=== PATIENT | female | born 2000 | race Caucasian/White ===

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

== ENCOUNTER 2018-11-22 22:04 | Outpatient (CLI) | payer OTHER ==
[2018-11-22 22:46] LABS: APPEARANCE,URINE SLIGHTLY-CLOUDY; BILIRUBIN,URINE NEGATIVE (NEGATIVE); COLOR,URINE AMBER; GLUCOSE, URINE NEGATIVE (NEGATIVE); KETONES,URINE 20 mg/dL (NEGATIVE); LEUKOCYTE ESTERASE,URINE NEGATIVE (NEGATIVE); NITRITE,URINE NEGATIVE (NEGATIVE); PROTEIN,URINE 30 mg/dL (NEGATIVE); URINE SPECIFIC GRAVITY 1.031; UROBILINOGEN,URINE NEGATIVE mg/dL (<2.0)
[2018-11-22 23:26] LABS: URINE AMPHETAMINES SCREEN NEGATIVE; URINE BARBITURATES SCREEN NEGATIVE; URINE BENZODIAZEPINES SCREEN NEGATIVE; URINE COCAINE SCREEN NEGATIVE; URINE MARIJUANA (THC) SCREEN NEGATIVE; URINE METHADONE SCREEN NEGATIVE; URINE PHENCYCLIDINE SCREEN NEGATIVE
--- NOTE | 2018-11-23 00:51 | Non Stress Test Report ---
Non Stress Test Datetime Report Generated by CPN: 11/23/2018 00:51 DEMOGRAPHIC EGA NST: 37.5 INDICATION Indication for Study: Ordered by Provider MONITORING Monitor Explained: Monitor Explained; Test Explained; Patient Verbalized Understanding Time on Monitor: 11/22/2018 23:00 Time off Monitor: 11/23/2018 00:25 NST Duration: 85 NST INTERVENTIONS NST Interventions: PO Hydration; IV Fluids; Reposition Patient Physician Notified NST: Dr. Garcia BABY A: [id number] BABY A Movement : Present Contraction Frequency : irregular FHR Baseline : 125 Accelerations : 15X15 Decelerations : None Variability : Moderate 6-25bpm NST Review: Meets Criteria for Reactive NST NST Review and Verified By : Shanon Castillo RN NST Results: Reactive NST REPORT Report Trigger: Send Report
== END 2018-11-23 00:51 | disposition home or self-care (01) ==
LOC: LC 22:04
PROVIDERS: ATTEND Student in an Organized Health Care Education/Training Program
PROC: 4A1HXCZ Monitoring of Products of Conception, Cardiac Rate, External Approach (ICD-10-PCS; principal; 2018-11-22)
DX: O47.1 False labor at or after 37 completed weeks of gestation (principal); Z3A.37 37 weeks gestation of pregnancy
CPT/HCPCS: 59025; 80307; 81005

== ENCOUNTER 2018-12-15 17:43 | Emergency (ER) | payer OTHER ==
--- NOTE | 2018-12-15 18:00 | EKG REPORT ---
SEVERITY:- ABNORMAL ECG - SINUS TACHYCARDIA VENTRICULAR BIGEMINY BORDERLINE PROLONGED QT INTERVAL : Confirmed by: Darrian Pierre MD 15-Dec-2018 18:00:26
[2018-12-15] MEDS ORDERED: ASPIRIN 81 MG TABLET, CHEWABLE PO ONE (18:03)
[2018-12-15] MEDS ORDERED: METOPROLOL TARTRATE 25 MG TABLET PO ONE (18:41)
[2018-12-15] MEDS ORDERED: IPRATROPIUM/ALBUTEROL 0.5-2.5 MG/3 ML AMPUL NEB ONE (18:41)
--- NOTE | 2018-12-15 19:01 | ER Document Report ---
ED General - General Chief Complaint: Irregular Pulse Stated Complaint: IRREGULAR HEARTBEAT Time Seen by Provider: 12/15/18 18:22 TRAVEL OUTSIDE OF THE [place] IN LAST 30 DAYS: No - Related Data Allergies/Adverse Reactions: amoxicillin Allergy (Verified 12/15/18 17:44) kiwi Allergy (Verified 12/15/18 17:44) Penicillins Allergy (Verified 12/15/18 17:44) Past Medical History - Social History Smoking Status: Never Smoker Chew tobacco use (# tins/day): No Frequency of alcohol use: None Drug Abuse: None Patient has suicidal ideation: No Patient has homicidal ideation: No Renal/ Medical History: Denies: Hx Peritoneal Dialysis Physical Exam - Vital signs Vitals: Temp Pulse Resp BP Pulse Ox 98.0 F 96 18 126/96 H 99 12/15/18 17:56 12/15/18 17:56 12/15/18 17:56 12/15/18 17:56 12/15/18 17:56 Course - Vital Signs Vital signs: Temp Pulse Resp BP Pulse Ox 97.6 F 96 21 H 116/75 100 12/15/18 18:26 12/15/18 17:56 12/15/18 18:26 12/15/18 18:26 12/15/18 18:26 - Laboratory Result Diagrams: 12/15/18 18:40 12/15/18 18:40 - EKG Interpretation by Md EKG shows normal: Sinus rhythm Rate: Tachycardia - Bigeminy, prolonged QTC When compared to previous EKG there are: Previous EKG unavailable
[2018-12-15] MEDS ORDERED: RINGERS SOLUTION,LACTATED 1,000 ML IV ONE (19:02)
--- NOTE | 2018-12-15 19:02 | ER Document Report ---
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 Patient states that she was seeing the glass wool blanket machine feeder for a skin rash on her right leg. She denies any palpitations, diaphoresis, dizziness. She states she has had some shortness of breath over the last 3 days. Patient also has associated chest pressure and nausea without vomiting. Patient is day 14. She states she had an under the uneventful vaginal delivery without any complications. Patient denies any current medication use, alcohol, tobacco use. TRAVEL OUTSIDE OF THE [place] IN LAST 30 DAYS: No - HPI Onset: This afternoon Onset/Duration: Sudden Quality of pain: Pressure Severity: Mild Associated symptoms: Chest pain, Nausea, Shortness of breath. denies: Nonproductive cough, Fever, Headache, Leg swelling, Vomiting, Sweating Exacerbated by: Movement Relieved by: Denies Similar symptoms previously: No Recently seen / treated by doctor: Yes - Related Data Allergies/Adverse Reactions: amoxicillin Allergy (Verified 12/15/18 17:44) kiwi Allergy (Verified 12/15/18 17:44) Penicillins Allergy (Verified 12/15/18 17:44) Past Medical History - General Information source: Patient - Social History Smoking Status: Never Smoker Chew tobacco use (# tins/day): No Frequency of alcohol use: None Drug Abuse: None Lives with: Family, Spouse/Significant other Family History: Reviewed & Not Pertinent Patient has suicidal ideation: No Patient has homicidal ideation: No - Medical History Medical History: Negative Renal/ Medical History: Denies: Hx Peritoneal Dialysis Review of Systems - Review of Systems Notes: REVIEW OF SYSTEMS: CONSTITUTIONAL : Denies fever, chills, or sweats. Denies recent illness. Denies weight loss, recent hospitalizations. EENT: Denies visual changes, eye pain. Denies sore throat, oral lesions, difficulty swallowing. CARDIOVASCULAR: + chest pain. Denies palpitations. Denies lower extremity edema. RESPIRATORY: Denies cough. + shortness of breath, denies wheezing. GASTROINTESTINAL: Denies abdominal pain or distention. Denies vomiting, or diarrhea. Denies blood in vomitus, stools, or per rectum. Denies black, tarry stools. Denies constipation. GENITOURINARY: Denies difficulty urinating, painful urination, frequency, blood in urine, or vaginal discharge. MUSCULOSKELETAL: Denies back or neck pain or stiffness. Denies joint pain or swelling. SKIN: Denies rash, lesions or sores. HEMATOLOGIC : Denies easy bruising or bleeding. LYMPHATIC: Denies swollen glands. NEUROLOGICAL: Denies confusion or altered mental status. Denies loss of consciousness. Denies dizziness or lightheadedness. Denies headache. Denies weakness or paralysis. Denies problems difficulty with ambulation, slurred speech. Denies sensory loss, numbness, or tingling. Denies seizures. PSYCHIATRIC: Denies anxiety or stress. Denies depression, suicidal ideation, or homicidal ideation. Denies visual or auditory hallucinations. Physical Exam - Vital signs Vitals: Temp Pulse Resp BP Pulse Ox 98.0 F 96 18 126/96 H 99 12/15/18 17:56 12/15/18 17:56 12/15/18 17:56 12/15/18 17:56 12/15/18 17:56 - Notes Notes: PHYSICAL EXAMINATION: GENERAL: Well-appearing, well-nourished and in no acute distress. HEAD: Atraumatic, normocephalic. EYES: Pupils equal round and reactive to light, extraocular movements intact, conjunctiva are normal. ENT: Nares patent, oropharynx clear without exudates. Moist mucous membranes. NECK: Normal range of motion, supple without lymphadenopathy LUNGS: Breath sounds clear to auscultation bilaterally and equal. No wheezes rales or rhonchi. HEART: Regular rate and rhythm without murmurs ABDOMEN: Soft, nontender, nondistended abdomen. No guarding, no rebound. No masses appreciated. Female : deferred Musculoskeletal: Normal range of motion, no pitting or edema. No cyanosis. NEUROLOGICAL: Cranial nerves grossly intact. Normal speech, normal gait. Normal sensory, motor exams PSYCH: Normal mood, normal affect. SKIN: Warm, Dry, normal turgor, no rashes or lesions noted. Course - Re-evaluation Re-evalutation: 12/16/18 01:46 Laboratory 12/15/18 12/15/18 12/15/18 18:40 18:40 18:40 WBC 7.5 RBC 4.80 Hgb 14.9 Hct 43.7 MCV 91 MCH 31.0 MCHC 34.0 RDW 15.0 H Plt Count 278 Seg Neutrophils % 50.4 Lymphocytes % 36.0 Monocytes % 9.2 Eosinophils % 3.5 Basophils % 0.9 Absolute Neutrophils 3.8 Absolute Lymphocytes 2.7 Absolute Monocytes 0.7 Absolute Eosinophils 0.3 Absolute Basophils 0.1 PT 13.0 INR 0.98 D-Dimer 0.33 Sodium 138.7 Potassium 4.0 Chloride 104 Carbon Dioxide 23 Anion Gap 12 BUN 18 Creatinine 0.76 Est GFR ( Amer) > 60 Est GFR (Non-Af Amer) > 60 Glucose 81 Calcium 9.5 Magnesium 2.0 Total Bilirubin 0.9 Direct Bilirubin 0.2 Neonat Total Bilirubin Not Reportable Neonat Direct Bilirubin Not Reportable Neonat Indirect Bili Not Reportable AST 21 ALT 13 Alkaline Phosphatase 110 Troponin I Total Protein 7.1 Albumin 4.4 TSH Free T4 Free T3 pg/mL 12/15/18 12/15/18 12/15/18 18:40 18:40 20:50 WBC RBC Hgb Hct MCV MCH MCHC RDW Plt Count Seg Neutrophils % Lymphocytes % Monocytes % Eosinophils % Basophils % Absolute Neutrophils Absolute Lymphocytes Absolute Monocytes Absolute Eosinophils Absolute Basophils PT INR D-Dimer Sodium Potassium Chloride Carbon Dioxide Anion Gap BUN Creatinine Est GFR ( Amer) Est GFR (Non-Af Amer) Glucose Calcium Magnesium Total Bilirubin Direct Bilirubin Neonat Total Bilirubin Neonat Direct Bilirubin Neonat Indirect Bili AST ALT Alkaline Phosphatase Troponin I < 0.012 < 0.012 Total Protein Albumin TSH 0.56 Free T4 0.76 L Free T3 pg/mL 3.77 Chest X-Ray 12/15/18 18:59 IMPRESSION: NO ACUTE RADIOGRAPHIC FINDING IN THE CHEST. 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 Vital signs reviewed and within normal limits. Previous medical records and nursing notes reviewed. Patient does not appear toxic or dehydrated. EKG was obtained which shows sinus rhythm with occasional PVCs and bigeminy. No previous EKG available for comparison. CBC is without leukocytosis or anemia. CMP is without electrolyte abnormality. Cardiac enzymes including delta troponin were within normal limits. Patient is PERC negative. Thyroid panel is unremarkable. I did trial metoprolol 12.5 mg p.o. 1 time but patient's blood pressure was lower than I would like, for continuous use. Patient does not currently have a technical specialist cytology but was referred to one. No home-going medications were given at this time. Return precautions discussed with the patient and her who is at the bedside. Patient was evaluated and treated as appropriate for the patient's presenting symptoms and complaint, with consideration of any critical or life threatening conditions that may be associated with their obtained history and exam as noted above. All results were discussed with patient and her who is at the bedside patient provided the opportunity to ask questions, and express concerns. Patient was educated on treatments based on their presumed diagnosis as noted above. At this time we will discharge the patient with return precautions and follow-up recommendations. Verbal discharge instructions given a the bedside. Medication warnings reviewed. Patient is in agreement with this plan and has verbalized understanding of return precautions. After careful consideration I feel that that patient can be safely discharged from the emergency department, they were advised to followup with a primary care physician in 2-3 days. Dictation on this chart was performed using voice recognition software and may result in unintended grammatical, spelling, syntax or errors. Presentation of chest pain in an otherwise well appearing patient. Low clinical suspicion for ACS given clinical history, exam, EKG without ST elevations or depressions, and negative initial troponin. HEART score less than or equal to 3. PE also seems unlikely given clinical history, absence of tachycardia or dyspnea. Patient is PERC criteria negative. CXR without evidence of pneumothorax or pneumonia. No widened mediastinum. Aortic dissection also seems unlikely given history, symmetric pulses, CXR, and vitals. HEART Score: History-0 ECG-0 Age-0 Risk Factors-0 Troponin-0 Total: 0 Chest pain in a patient without evidence of cardiac or other serious etiology on workup today. I discussed with patient that, based on their age, risk factors and emergency department testing today, the likelihood that their symptoms are related to a heart attack is very low (estimated risk of heart attack or over the next 30 days of less than 1%). The patient demonstrates decision making capacity and has verbalized an understanding of these risks to me. Based on this, the patient has chosen to follow-up as an outpatient. Usual chest pain return precautions reviewed. The patient states understanding and agreement with this plan. - Vital Signs Vital signs: Temp Pulse Resp BP Pulse Ox 97.7 F 96 16 106/69 100 12/15/18 22:02 12/15/18 17:56 12/15/18 22:03 12/15/18 22:02 12/15/18 22:03 - Laboratory Result Diagrams: 12/15/18 18:40 12/15/18 18:40 Laboratory results interpreted by me: 12/15/18 12/15/18 18:40 18:40 RDW 15.0 H Free T4 0.76 L - Diagnostic Test Radiology reviewed: Image reviewed, Reports reviewed - EKG Interpretation by Me EKG shows normal: Sinus rhythm Rate: Normal Rhythm: NSR - Bigeminy When compared to previous EKG there are: Previous EKG unavailable Discharge - Discharge Clinical Impression: Bigeminy, Palpitations Chest pain Qualifiers: Chest pain type: unspecified Qualified Code(s): R07.9 - Chest pain, unspecified Dyspnea Qualifiers: Dyspnea type: unspecified Qualified Code(s): R06.00 - Dyspnea, unspecified Condition: Good Disposition: HOME, SELF-CARE Instructions: Dyspnea, Nonspecific ([facility]), Palpitations (Irregular or Rapid Heartrate) ([facility]) Additional Instructions: Follow up with your [id number] hours for further care or return to the ED IMMEDIATELY if symptoms worsen or you have any concerns. If you cannot afford to follow up with your primary care physician a list of low cost clinics have been provided at the end of your discharge papers as well. Most prescribed medications have multiple side effects. The safest thing to do is when filling your prescription speak to your pharmacist regarding possible interactions with your normal home medications and over the counter medications such as Ibuprofen, Tylenol, Benadryl. If you experience any symptoms that cause you discomfort or concern you should discontinue the medication immediately and return to the emergency room or call your primary care physician. Forms: Parent Work Note Referrals: ALESSIA FRIEND MD [ACTIVE STAFF] - Follow up in 3-5 days
[2018-12-15 19:03] LABS: ABSOLUTE BASOPHILS # (AUTO) 0.1 10^3/uL (0.0-0.2); ABSOLUTE EOSINOPHILS # (AUTO) 0.3 10^3/uL (0.0-0.6); ABSOLUTE LYMPHOCYTES (AUTO) 2.7 10^3/uL (0.5-4.7); ABSOLUTE MONOCYTES (AUTO) 0.7 10^3/uL (0.1-1.4); ABSOLUTE NEUT (AUTO) 3.8 10^3/uL (1.7-8.2); BASOPHILS % (AUTO) 0.9 % (0-2); EOSINOPHILS % (AUTO) 3.5 % (0-6); HEMATOCRIT 43.7 % (36.0-47.0); HEMOGLOBIN 14.9 g/dL (12.0-15.5); MEAN CORPUSCULAR VOLUME 91 fl (80-97); MONOCYTES % (AUTO) 9.2 % (3-13); PLATELET COUNT 278 10^3/uL (150-450); SEGMENTED NEUTROPHILS % (AUTO) 50.4 % (42-78); TOTAL CELLS COUNTED % (AUTO) 100 %; WHITE BLOOD COUNT 7.5 10^3/uL (4.0-10.5)
[2018-12-15 19:14] LABS: INTERNATIONAL RATION (INR) 0.98
[2018-12-15 19:16] LABS: D-DIMER 0.33 ug/mL (0.00-0.50)
[2018-12-15 19:28] LABS: ALBUMIN 4.4 g/dL (3.5-5.0); ALKALINE PHOSPHATASE 110 U/L (38-126); ANION GAP 12 (5-19); ASPARTATE AMINO TRANSFERASE 21 U/L (14-36); BILIRUBIN,DIRECT 0.2 mg/dL (0.0-0.4); BILIRUBIN,TOTAL 0.9 mg/dL (0.2-1.3); BLOOD UREA NITROGEN 18 mg/dL (7-20); CALCIUM 9.5 mg/dL (8.4-10.2); CARBON DIOXIDE 23 mmol/L (22-30); CHLORIDE 104 mmol/L (98-107); GLUCOSE 81 mg/dL (75-110); TOTAL PROTEIN 7.1 g/dL (6.3-8.2)
--- NOTE | 2018-12-15 19:46 | RADIOLOGY REPORT (SQ) ---
EXAM DESCRIPTION: CHEST 2 VIEWS COMPLETED DATE/TIME: 12/15/2018 7:23 pm REASON FOR STUDY: Chest pain shortness of breath COMPARISON: None. EXAM PARAMETERS: NUMBER OF VIEWS: two views TECHNIQUE: Digital Frontal and Lateral radiographic views of the chest acquired. RADIATION DOSE: NA LIMITATIONS: none FINDINGS: LUNGS AND PLEURA: No opacities, masses or pneumothorax. No pleural effusion. MEDIASTINUM AND HILAR STRUCTURES: No masses or contour abnormalities. HEART AND VASCULAR STRUCTURES: Heart normal size. No evidence for failure. BONES: No acute findings. HARDWARE: None in the chest. OTHER: No other significant finding. IMPRESSION: NO ACUTE RADIOGRAPHIC FINDING IN THE CHEST. TECHNICAL DOCUMENTATION: JOB ID: [id number] [place]-[id number] 2010 [employer]- All Rights Reserved Reading location - IP/workstation name: [email or web address]
[2018-12-15 19:48] LABS: FREE T3 3.77 pg/mL (2.77-5.27); FREE T4 (FREE THYROXINE) 0.76 ng/dL (0.78-2.19)
[2018-12-15 20:02] LABS: THYROID STIMULATING HORMONE 0.56 uIU/mL (0.47-4.68)
[2018-12-15 22:29] VITALS: BP 106/69
--- NOTE | 2018-12-16 08:04 | EKG REPORT ---
SEVERITY:- ABNORMAL ECG - SINUS TACHYCARDIA VENTRICULAR TRIGEMINY : Confirmed by: Darrian Pierre MD 16-Dec-2018 08:04:01
== END 2018-12-15 22:29 | disposition home or self-care (01) ==
LOC: ER 17:43
DX: I49.8 Other specified cardiac arrhythmias (principal); R00.2 Palpitations; R07.9 Chest pain, unspecified; R06.00 Dyspnea, unspecified; I48.91 Unspecified atrial fibrillation; R11.0 Nausea; R06.02 Shortness of breath
CPT/HCPCS: 93005; 94640; 99285; 96360; 96361; 36415; 84439; 83735; 84443; 85025; 85610; 80053; 84484; 84481; 85379; 71046; 93010; J7120; J7620